=== PATIENT | male | born 1995 | race Caucasian/White ===

== ENCOUNTER 2016-11-26 19:55 | Emergency (ER) | payer BC ==
[~2016-11-26] VITALS: Ht 193 cm; Wt 68.0 kg
[2016-11-27] MEDS ORDERED: IBUPROFEN 600MG TABLET PO ONE (02:00)
[2016-11-27 04:23] VITALS: BP 156/86
== END 2016-11-27 04:26 | disposition home or self-care (01) ==
LOC: ER 11-27 02:13
DX: S62.91XA Unspecified fracture of right hand, initial encounter for closed fracture (principal); F12.10 Cannabis abuse, uncomplicated; W19.XXXA Unspecified fall, initial encounter; Y93.51 Activity, roller skating (inline) and skateboarding; Y92.89 Other specified places as the place of occurrence of the external cause; Y99.8 Other external cause status
CPT/HCPCS: 73130; 99284